=== PATIENT | female | born 1985 ===

== ENCOUNTER 2017-04-02 08:29 | Emergency (ER) | payer MEDICAID ==
[2017-04-02 09:01] VITALS: BP 126/83; PULSE 82; RESP 17; TEMP 98.6; O2SAT 95
[2017-04-02] MEDS ORDERED: Albuterol-Ipratrop 3 mg / 0.5 (3 ml) UD INH STA (09:47)
[2017-04-02] MEDS ORDERED: Albuterol-Ipratrop 3 mg / 0.5 (3 ml) UD ONE (09:54)
--- NOTE | 2017-04-02 10:29 | C.PDOC ---
History Of Present Illness 31 y/o female presents to the ER complaining of cough, nasal congestion, and sore throat which has been present for the past week. Patient denies having nausea, vomiting, and diarrhea. Of note, patient states she has a history of reactive airway disease and URIs. Time Seen by Provider: 04/02/17 09:43 Chief Complaint (Nursing): Flu-like Symptoms History Per: Patient History/Exam Limitations: no limitations Onset/Duration Of Symptoms: Days Current Symptoms Are (Timing): Still Present Associated Symptoms: Sore Throat, Cough, Nasal Congestion Severity: Moderate Past Medical History Reviewed: Historical Data, Nursing Documentation, Vital Signs Vital Signs: Last Vital Signs Temp 98.6 F 04/02/17 08:32 Pulse 82 04/02/17 08:32 Resp 17 04/02/17 08:32 BP 126/83 04/02/17 08:32 Pulse Ox 95 04/02/17 10:43 - Medical History PMH: Asthma Surgical History: No Surg Hx Family History: States: No Known Family Hx - Social History Hx Tobacco Use: No Hx Alcohol Use: No Hx Substance Use: No - Immunization History Hx Tetanus Toxoid Vaccination: Yes Hx Influenza Vaccination: No Hx Pneumococcal Vaccination: No Review Of Systems Except As Marked, All Systems Reviewed And Found Negative. ENT: Positive for: Nose Congestion, Throat Pain Respiratory: Positive for: Cough Gastrointestinal: Negative for: Nausea, Vomiting, Diarrhea Physical Exam - Physical Exam Appears: Non-toxic, No Acute Distress, Other (morbidly obese) Skin: Normal Color, Warm Head: Atraumatic, Normacephalic Eye(s): bilateral: Normal Inspection Ear(s): Bilateral: Normal Nose: Normal Oral Mucosa: Moist Throat: Normal, No Erythema, No Exudate Chest: Symmetrical Cardiovascular: Rhythm Regular Respiratory: Normal Breath Sounds, No Accessory Muscle Use, No Rales, No Rhonchi , Wheezing (scant wheezing), Other (non-productive cough) Extremity: Normal ROM Neurological/Psych: Oriented x3, Normal Speech, Normal Motor, Normal Sensation ED Course And Treatment O2 Sat by Pulse Oximetry: 95 (RA) Pulse Ox Interpretation: Normal Medical Decision Making Medical Decision Makin week viral syndrome reactive airway dz, h/o same much improved with prednisone/duonebs Disposition Doctor Will See Patient In The: Office Counseled Patient/Family Regarding: Studies Performed, Diagnosis - Disposition Referrals: Jennifer Sosa MD [Medical Doctor] - Disposition: HOME/ ROUTINE Disposition Time: 10:29 Condition: GOOD Additional Instructions: prednisone 40 mg diario por 4 lerner mas Duoneb inhaled treatments with TWO ampules every 3-4 hours as needed Continue liberal Dayquil/Nyquil for flu-like symptoms. Prescriptions: Albuterol HFA [Ventolin HFA 90 mcg/actuation (8 g)] 2 puff IH Q4H PRN #2 puff PRN Reason: asthma Albuterol/Ipratropium [Duoneb 3 MG/3 Ml-0.5 MG/3 Ml 3 Ml] 6 ml IH Q4H PRN #100 neb PRN Reason: asthma Nebulizer [Compact Compressor Nebulizer] 1 dev XX PRN PRN #1 dev PRN Reason: asthma Prednisone [Deltasone] 40 mg PO DAILY #8 tablet Spacer, Inhalation [Aerochamber] 1 dev IH DAILY #1 dev Instructions: Reactive Airways Disease (ED), Viral Syndrome (ED) Forms: [employer] (Irish) - Clinical Impression Clinical Impression: Influenza-like illness, Reactive airway disease - Scribe Statement The provider has reviewed the documentation as recorded by the Carolyn Vo Provider Attestation: All medical record entries made by the Scribe were at my direction and personally dictated by me. I have reviewed the chart and agree that the record accurately reflects my personal performance of the history, physical exam, medical decision making, and the department course for this patient. I have also personally directed, reviewed, and agree with the discharge instructions and disposition.
== END 2017-04-02 10:39 | disposition home or self-care (01) ==
LOC: C.ER 08:29
DX: J11.1 Influenza due to unidentified influenza virus with other respiratory manifestations (principal); J45.909 Unspecified asthma, uncomplicated